=== PATIENT | female | born 1990 | race Caucasian/White ===

== ENCOUNTER 2024-12-22 18:25 | Emergency (ER) | payer OTHER, SELFPAY ==
[2024-12-22 18:27] VITALS: BP 173/100
--- NOTE | 2024-12-22 18:52 | ED.GENMED ---
History of Present Illness
General
Chief Complaint: Female Stem Cutter/Gu symptoms
Source: patient
Exam Limitations: none
Time Seen by Provider: 12/22/24 18:52
Nursing documentation reviewed up to this point in time: agreed with
History of Present Illness
History of Present Illness:
The patient is a 34-year-old female who reports that 1 to 2 days ago she took a home test and it came back positive. Patient reports that she has a history of an ectopic and multiple miscarriages. She is here to make sure
she is not having ' another ectopic ' because she reports that about a month ago she experienced vaginal bleeding that was similar to a menstrual period and is concerned about this bleeding. Patient reports that she has not bled since
then. She denies burning when she urinates. She denies abdominal pain.
Past History
Past History
ED Past Medical History: Other (Resection of right tubal Appendectomy, pheochromocytoma 2011. Thyroidectomy)
ED Past Surgical History: Gynecological
Social History
Tobacco: Smoker
Alcohol: Occasional
Drug: None
Personal:
Living: with family
Employment: Other
Family History
Family History: Other (Mother with atrial fibrillation)
Review of Systems
Review of Systems
Allergies reviewed?: Yes
All Other Systems: ROS reviewed and negative except as documented in HPI and ROS
Constitutional: Reports no symptoms
EENT: Reports no symptoms
Respiratory: Reports no symptoms
Cardiac: Reports no symptoms
ABD/GI: Reports no symptoms
: Reports other (Vaginal bleeding that she last experienced on 11/19/2024- has not had any vaginal bleeding since then)
Musculoskeletal: Reports no symptoms
Skin: Reports no symptoms
Neurological: Reports no symptoms
Hematologic/Lymphatic: Reports no symptoms
Psychiatric: Reports no symptoms
Phy Exam
Physical Exam
Physical Exam:
Physical Exam
General: no apparent distress, not acutely ill. comfortable appearing
Neck: supple. no meningeal signs. normal psoterior pharynx
Heart: s1/s2 regular rate and rhythm, no murmur. equal radial pulses.
Lungs: no acute respiratory distress. clear bilaterally
Abdomen: normal bowel sounds. not tender. no CVAT
Neuro: alert and oriented. no focal neurological deficits
Skin: no rash
Psychiatric: well kept. interactive and cooperative
Extremities: no edema. no calf tenderness. negative homans. good distal pulses
Course
Orders/Labs/Results
Orders:
Orders
12/22/24 18:55
Urinalysis Reflex To Culture Urgent
Date Specimen was Collected: 12/22/24
Time Specimen was Collected: 19:18
12/22/24 19:32
Complete Blood Count/With Diff Urgent
Comprehensive Metabolic Panel Urgent
Free T4 Urgent
HCG, Beta Quantitative [Beta HCG Quantitative] Urgent
Is this a screen?: No
TSH Reflex To Free T4 Urgent
12/22/24 19:39
US W Transvaginal Urgent
Reason For Exam: history of ectopic
Abnormal Lab Results
12/22/24
19:32
RBC 3.87 L 10^6/uL
(4.20-5.40)
Hgb 11.7 L g/dL
(12.0-16.0)
Hct 33.3 L %
(37.0-47.0)
Sodium 134 L mmol/L
(135-145)
TSH (Reflex) 50.10 H uIU/ml
(0.47-4.68)
12/22/24 19:32
12/22/24 19:32
Vital Signs
Initial and Last Documented VS:
Initial Vital Signs
Temp Pulse Resp BP Pulse Ox
98.0 F 78 17 173/100 99
12/22/24 18:27 12/22/24 18:27 12/22/24 18:27 12/22/24 18:27 12/22/24 18:27
Last Documented Vital Signs
Temp Pulse Resp BP Pulse Ox
98.0 F 78 17 118/72 99
12/22/24 18:27 12/22/24 18:27 12/22/24 18:27 12/22/24 21:49 12/22/24 18:53
MDM/Problems Addressed
Differential Diagnosis Includes:
Threatened miscarriage, early IUP, ectopic
MDM/Problems Addressed:
Patient presents with a positive home test but reports vaginal bleeding that occurred 1 month ago but has not occurred since then.
Chronic conditions affecting care:
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
Acute Exacerbation and/or Progression of Chronic Illness:
Patient is significantly hypothyroid.
*Radiology
Radiology exam reviewed: radiology read reviewed
*Pulse Oximetry
SaO2: 99
Oxygen Mode of Delivery: Room air
Patient hypoxic: no
Comment: 99% on room air
*EKG
Interpreted by ED Provider?: NA
*Edge Molder Interpretation
Rate: Edge Molder- N/A
*Critical Care Note
Total Time (30-74mins, 75-104mins- exclusive of procedures): Not Applicable
Data Reviewed
Source: patient and spouse
Patient Management
Social determinants of health affecting care: Living situation and Strong social support
Escalation/DeEscalation of care consider admission/obs:
Patient understands the importance of speaking to her primary care doctor soon as possible about her hypothyroidism. I explained to her this could greatly affect her and even cause a miscarriage. She assured me she will talk to her
primary care doctor tomorrow about this. Given that patient had heavy vaginal bleeding 1 month ago, I gave the patient a prescription for repeat beta hCG quant to have testing done in 48 hours so that her slat basket maker helper machine could trend her beta hCG quant.
Patient reports she was extremely anxious when she checked into triage, and feels that her blood pressure is greatly elevated due to this. When patient calmed down and her blood pressure was rechecked, it went down substantially and nearly
normalized
ED Attending Note
-
Portions of this chart may have been created with voice recognition software.� Occasional wrong word or��sound alike� substitutions may have occurred due to the inherent limitations of voice recognition software.
Discharge Plan
Departure
Patient Disposition: Home (Routine Discharge)
Date of Disposition: 12/22/24
Time of Disposition: 22:09
Patient with high blood pressure during this ER visit?: Yes
Condition: Good
Discharge Problem:
Intrauterine , Subchorionic hematoma in first trimester, Hypothyroidism
Instructions: Hypothyroidism (underactive thyroid), Subchorionic Bleeding, Bleeding in early - ED (DC), BLOOD PRESSURE
Prescriptions:
No Action
levothyroxine [Synthroid] 200 MCG tablet
200 mcg PO DAILY
Tablet Tab
1 tab PO DAILY
oxycodone-acetaminophen 5 MG/325 MG tablet
1 tab PO Q4HPRN PRN (Reason: moderate pain) Qty: 30 0RF
ibuprofen 600 MG tablet
600 mg PO Q6HPRN PRN (Reason: moderate pain/cramps) Qty: 0 0RF
docusate sodium 100 MG capsule
100 mg PO BID Qty: 0 0RF
Referrals:
Miguel Padilla DO [Family Provider, Family Practice]
Referral Note: To discuss your thyroid level
Activity Restrictions/Additional Instructions:
Please call your primary care doctor tomorrow to let the office know that you are very hypothyroid. This can have a negative impact on your and can even cause a miscarriage so please let them know you are and that this is an
issue that needs to be addressed as soon as possible.
Please also schedule an appointment with your slat basket maker helper machine
You can have your beta hCG (hormone level) checked in 48 hours at an outpatient lab. In a normal , this level should double every 48 hours.
Please buy a vitamin to take once a day. These are sold [id number]. For example, you can buy Nature [employer] with Folic Acid plus DHA
Interventions
Interventions:
*Risk Screen - Suicide Last Done: 12/22/24 18:30
*General Assessment Last Done: 12/22/24 18:30
*Neglect/Abuse Screening Last Done: 12/22/24 18:30
*ED- Fall Risk Assessment Last Done: 12/22/24 22:45
*ED COVID-19 Vaccine History Last Done: 12/22/24 18:30
*Nursing Disposition Last Done: 12/22/24 22:45
ED-Female Genitourinary Assessment Last Done: 12/22/24 20:30
Discharge Date and Time
Discharge Date/Time: 12/22/24 22:45
Print Language: CONGOLESE
[2024-12-22 19:31] VITALS: BMI 23.9
[2024-12-22 19:46] LABS: Hematocrit 33.3 % (37.0-47.0); Hemoglobin 11.7 g/dL (12.0-16.0); Mean Corp Hgb Conc. 35.1 g/dL (33.0-37.0); Mean Corpuscular Volume 86.0 fL (81.0-99.0); Nucleated Red Blood Cells % 0 %; Platelet Count 263 10^3/uL (130-400); Red Cell Dist. Width 13.0 % (11.5-14.5)
[2024-12-22 19:56] LABS: ALT (SGPT) 12 U/L (0-35); AST (SGOT) 19 U/L (14-36); Albumin 4.5 g/dl (3.5-5.0); Alkaline Phosphatase 53 U/L (38-126); Blood Urea Nitrogen 10 mg/dl (7-17); Calcium 9.2 mg/dl (8.4-10.2); Carbon Dioxide 22 mmol/L (22-30); Chloride 106 mmol/L (98-107); Estimated Creatinine Clearance 77 ml/min; Glucose 88 mg/dl (70-99); Potassium 3.8 mmol/L (3.5-5.1); Sodium 134 mmol/L (135-145); Total Protein 6.6 g/dl (6.3-8.2); eGFR > 60.00
[2024-12-22 20:14] LABS: Beta HCG Quantitative 2777.40 mIU/ml
[2024-12-22 21:49] VITALS: BP 118/72
== END 2024-12-22 22:45 | disposition home or self-care (01) ==
LOC: EMR 18:25
PROVIDERS: EMERGENCY PHYSICIAN Emergency Medicine; FAMILY PHYSICIAN Family Medicine
DX: O46.8X1 Other antepartum hemorrhage, first trimester (principal); R03.0 Elevated blood-pressure reading, without diagnosis of hypertension; O99.281 Endocrine, nutritional and metabolic diseases complicating pregnancy, first trimester; E89.0 Postprocedural hypothyroidism; O09.291 Supervision of pregnancy with other poor reproductive or obstetric history, first trimester; O34.81 Maternal care for other abnormalities of pelvic organs, first trimester; O99.331 Smoking (tobacco) complicating pregnancy, first trimester; F17.200 Nicotine dependence, unspecified, uncomplicated; Z3A.01 Less than 8 weeks gestation of pregnancy
CPT/HCPCS: 99284; 76801; 76817; 80053; 84439; 84443; 84702; 85025

== ENCOUNTER 2025-01-28 13:27 | Emergency (ER) | payer OTHER, SELFPAY ==
[2025-01-28 13:28] VITALS: BP 158/105
[2025-01-28 13:45] LABS: Hematocrit 35.4 % (37.0-47.0); Hemoglobin 12.1 g/dL (12.0-16.0); Mean Corp Hgb Conc. 34.2 g/dL (33.0-37.0); Mean Corpuscular Volume 87.8 fL (81.0-99.0); Nucleated Red Blood Cells % 0 %; Platelet Count 255 10^3/uL (130-400); Red Cell Dist. Width 13.4 % (11.5-14.5)
[2025-01-28 14:03] LABS: ALT (SGPT) 14 U/L (0-35); AST (SGOT) 19 U/L (14-36); Albumin 4.5 g/dl (3.5-5.0); Alkaline Phosphatase 51 U/L (38-126); Blood Urea Nitrogen 12 mg/dl (7-17); Calcium 9.6 mg/dl (8.4-10.2); Carbon Dioxide 21 mmol/L (22-30); Chloride 105 mmol/L (98-107); Glucose 91 mg/dl (70-99); Potassium 4.4 mmol/L (3.5-5.1); Sodium 133 mmol/L (135-145); Total Protein 7.3 g/dl (6.3-8.2); eGFR > 60.00
--- NOTE | 2025-01-28 14:42 | ED.GENMED ---
History of Present Illness
General
Chief Complaint: Problems
Time Seen by Provider: 01/28/25 14:42
History of Present Illness
History of Present Illness:
FOCUSED PAST MEDICAL HISTORY
- Has had right sided ectopic in the past, appendectomy in 2004
REVIEW OF OLD RECORDS
- On 12/22/2024, the patient had gestational sac noted in the uterus with small to moderate amount of free fluid
Note:
CHIEF COMPLAINT(S)
Vaginal bleeding during .
HISTORY OF PRESENT ILLNESS
The patient is a 34-year-old female who is currently 10 weeks . She presented with an acute onset of significant vaginal bleeding. The incident began while she was seated on the sofa with her daughter, experiencing a sudden 'gush' of blood
that was much more than a typical menstrual period. The bleeding was described by the patient as resembling the sensation experienced when 'your water breaks.' Upon standing, the patient noted a substantial amount of light, watery blood, suggestive
of a mixture with other fluid, potentially amniotic. The patient reports experiencing significant pain upon arrival at the medical facility, though she initially had none during the onset of symptoms.
EXTERNAL RECORDS REVIEWED
Initial basic laboratory tests have been conducted, which appeared normal, but the results for the human chorionic gonadotropin (hCG) levels are still pending. An ultrasound is planned to further evaluate the situation.
PHYSICAL EXAM
General: Is tearful and appears upset. She also appears somewhat uncomfortable
Skin: Warm, dry.
Head: Normocephalic, atraumatic.
Neck: Supple, trachea midline.
Cardiovascular: Normal peripheral perfusion, no edema.
Respiratory: Respirations are non-labored.
Gastrointestinal: Abdomen nondistended. I performed a bimanual examination which showed only small amount of blood, no adnexal tenderness, barely felt the tip of the cervix which was closed
Back: Normal range of motion, normal alignment.
Musculoskeletal: Normal range of motion, normal strength.
Neurological: Alert and oriented to person, place, time, and situation. No focal neurological deficit observed.
Psychiatric: Cooperative, is tearful and appears upset
PLAN
The patient is to undergo an ultrasound to assess the status of the and the source of bleeding. Awaiting the results of the hCG test as part of the diagnostic evaluation.
DIFFERENTIAL DIAGNOSIS
The Differential Diagnosis includes, in no particular order and is not limited to:
1. Threatened miscarriage
2. Subchorionic hemorrhage
3. Ectopic
4. Placental abruption
5. Molar
6. Cervical infection
7. Cervical polyp or ectropion
8. Trauma to the area
9. Physiological bleeding due to implantation
10. Coagulopathy
RADIOLOGY
- Ultrasound shows live IUP
LABS
- White count 11.0, hemoglobin 12.1, sodium 133, hCG over 100,000, O+ blood type
UPDATE
-SUMMARY OF ENCOUNTER
The patient, a 34-year-old female who is currently 10 weeks , presented to the emergency department with an acute onset of significant vaginal bleeding. She reported a sudden gush of blood, reminiscent of her water breaking, although she
experienced no pain initially. On arrival, she described significant pain. An ultrasound was performed which showed a heart rate of 185 beats per minute and no evidence of a subchorionic hemorrhage. Given the normal heart rate and
absence of hemorrhage, the patient was counseled on the normalcy of some bleeding during and advised on activity restrictions.
PLAN
The patient was advised to follow up with her software implementation specialist at [facility] and to continue avoiding intercourse and strenuous activities for at least a few more weeks.
INDEPENDENT REVIEW OF LABS AND INTERPRETATION OF TESTS
My independent review of the ultrasound indicates a normal heart rate of 185 BPM and no evidence of subchorionic hemorrhage.
PATIENT EDUCATION AND COUNSELING
The patient was counseled on the potential causes of bleeding during and reassured that while concerning, the current findings do not indicate an immediate complication. She was advised to monitor her symptoms and maintain her scheduled
appointments.
FOLLOW-UP INSTRUCTIONS
The patient was advised to follow up with her software implementation specialist at [facility].
MEDICATION RECONCILIATION
No medications were administered or prescribed during this visit.
MEDICAL DECISION MAKING
-Number and Complexity of Problems Addressed:
The differential diagnosis includes threatened miscarriage, subchorionic hemorrhage, molar , ectopic , and placental abruption.
-Data:
Category 1:
The ultrasound and external records were reviewed to provide a comprehensive assessment of the patients condition.
-Risk:
Consideration of Admission/Observation: Escalation of care including admission/observation was considered given the complexity and risk of the patients presenting complaint and exam findings. However, ultimately, I feel the patient is safe for
outpatient management with close follow-up. Reasoning: Work-up reassuring, does not reveal any acute life/organ threatening processes, patients symptoms well controlled upon reevaluation, reexamination is reassuring, vitals are stable, patient
agreeable with discharge, reliable for follow-up.
DIAGNOSIS
Threatened miscarriage
Past History
Past History
ED Past Medical History: Other (Resection of right tubal Appendectomy, pheochromocytoma 2011. Thyroidectomy)
ED Past Surgical History: Gynecological
Social History
Tobacco: Smoker
Alcohol: Occasional
Drug: None
Personal:
Living: with family
Employment: Other
Family History
Family History: Other (Mother with atrial fibrillation)
Phy Exam
Physical Exam
Physical Exam:
See HPI
Course
Orders/Labs/Results
Orders:
Orders
01/28/25 13:34
Comprehensive Metabolic Panel Urgent
01/28/25 13:35
Type And Crossmatch [Type+Screen] Urgent
Beta HCG Quantitative Urgent
Is this a screen?: No
Complete Blood Count/With Diff Urgent
01/28/25 13:41
US W Transvaginal Urgent
Reason For Exam: 10 weeks preg. Bleeding
Abnormal Lab Results
01/28/25 01/28/25
13:34 13:35
WBC 11.0 H 10^3/uL
(4.8-10.8)
RBC 4.03 L 10^6/uL
(4.20-5.40)
Hct 35.4 L %
(37.0-47.0)
Abs Immat Gran (auto) 0.1 H 10^3/uL
(0-0.05)
Absolute Neuts (auto) 8.3 H 10^3/uL
(1.4-6.5)
Absolute Monos (auto) 0.7 H 10^3/uL
(0.1-0.6)
Neutrophils % 75.6 H %
(42.2-75.2)
Lymphocytes % 15.5 L %
(20.5-51.1)
Sodium 133 L mmol/L
(135-145)
Carbon Dioxide 21 L mmol/L
(22-30)
01/28/25 13:35
01/28/25 13:34
Vital Signs
Initial and Last Documented VS:
Initial Vital Signs
Temp Pulse Resp BP Pulse Ox
36.7 C 83 18 158/105 98
01/28/25 13:28 01/28/25 13:28 01/28/25 13:28 01/28/25 13:28 01/28/25 13:28
Last Documented Vital Signs
Temp Pulse Resp BP Pulse Ox
36.7 C 56 18 94/72 100
01/28/25 13:28 01/28/25 16:14 01/28/25 16:14 01/28/25 16:14 01/28/25 16:14
Information
Weeks gestation: Weeks: (10)
Location: Location: ([facility])
*Pulse Oximetry
SaO2: 98
Oxygen Mode of Delivery: Room air
Patient hypoxic: no
*Critical Care Note
Total Time (30-74mins, 75-104mins- exclusive of procedures): Not Applicable
ED Attending Note
-
Portions of this chart may have been created with voice recognition software.� Occasional wrong word or��sound alike� substitutions may have occurred due to the inherent limitations of voice recognition software.
Discharge Plan
Departure
Prescriptions:
No Action
levothyroxine [Synthroid] 200 MCG tablet
200 mcg PO DAILY
Tablet Tab
1 tab PO DAILY
oxycodone-acetaminophen 5 MG/325 MG tablet
1 tab PO Q4HPRN PRN (Reason: moderate pain) Qty: 30 0RF
ibuprofen 600 MG tablet
600 mg PO Q6HPRN PRN (Reason: moderate pain/cramps) Qty: 0 0RF
docusate sodium 100 MG capsule
100 mg PO BID Qty: 0 0RF
Referrals:
Miguel Padilla, DO [Family Provider, Family Practice]
Interventions
Interventions:
*Risk Screen - Suicide Last Done: 01/28/25 13:28
*General Assessment Last Done: 01/28/25 13:28
*ED- Fall Risk Assessment Last Done: 01/28/25 16:09
*ED COVID-19 Vaccine History Last Done: 01/28/25 16:09
*ED Influenza Vaccine History Last Done: 01/28/25 16:09
ED-Female Genitourinary Assessment Last Done: 01/28/25 16:09
Discharge Date and Time
Print Language: KAZAKH
[2025-01-28 15:30] LABS: Beta HCG Quantitative 127010.00 mIU/ml
[2025-01-28 16:09] VITALS: BMI 25.1
[2025-01-28 16:14] VITALS: BP 94/72
== END 2025-01-28 17:11 | disposition home or self-care (01) ==
LOC: EMR 13:27
PROVIDERS: Student in an Organized Health Care Education/Training Program; EMERGENCY PHYSICIAN Emergency Medicine; FAMILY PHYSICIAN Family Medicine
DX: O20.0 Threatened abortion (principal); O99.331 Smoking (tobacco) complicating pregnancy, first trimester; F17.200 Nicotine dependence, unspecified, uncomplicated; Z3A.10 10 weeks gestation of pregnancy
CPT/HCPCS: 99284; 76801; 76817; 80053; 84702; 85025; 86850; 86900; 86901